=== PATIENT | male | born 1940 | race Caucasian/White ===

== ENCOUNTER 2025-10-10 13:17 | Inpatient (IN) | payer MEDICARE, OTHER, SELFPAY ==
[2025-10-10] VITALS (15 sets, daily range): BP systolic 71–150; BP diastolic 38–122; BMI 24.2
--- NOTE | 2025-10-10 10:41 | EDRN ---
Dr. Menard at bedside.
--- NOTE | 2025-10-10 11:00 | ED.GENMED ---
History of Present Illness
General
Chief Complaint: Chest Pain
Source: patient and ambulance crew
Exam Limitations: none
Time Seen by Provider: 10/10/25 10:46
History of Present Illness
History of Present Illness:
See MDM
Past History
Past History
ED Past Medical History: Arrthythmia, HTN and Hypercholesterolemia
ED Past Surgical History: None
Social History
Tobacco: Non-smoker
Alcohol: None
Phy Exam
Physical Exam
Physical Exam:
See MDM
Scores
Heart Score for Chest Pain Patients
STEMI patient?: Yes
Course
Orders/Labs/Results
Orders:
Orders
10/10/25 10:42
EKG [Electrocardiogram (*1)] Urgent
Reason for Study: Chest Pain
EKG- Treatment ONCE
10/10/25 10:43
BMP [Basic Metabolic Panel] Urgent
Complete Blood Count/No Diff Urgent
Comprehensive Metabolic Panel Urgent
Prothrombin Time Urgent
Troponin I Urgent
Vital Signs
Initial and Last Documented VS:
Initial Vital Signs
Pulse
55
10/10/25 10:48
Last Documented Vital Signs
Temp Pulse Resp BP Pulse Ox
97.5 F 55 29 149/114 97
10/10/25 10:53 10/10/25 10:51 10/10/25 10:51 10/10/25 10:51 10/10/25 10:51
MDM/Problems Addressed
Differential Diagnosis Includes:
Note:
CHIEF COMPLAINT(S)
Fall with subsequent shortness of breath.
HISTORY OF PRESENT ILLNESS
The patient is an 85-year-old male with a history of atrial fibrillation, currently on warfarin, presenting after a fall at 6 a.m. today. He reports experiencing shortness of breath since the fall. Patient is currently denying any chest pain.
Patient was found to be bradycardic by the medics. Medics indicated that they gave 1 dose of atropine. The patient was initially supposed to go to [facility] but their Hair Sample Matcher is down and they are on STEMI divert. [facility] did call
prior to arrival indicating the likelihood of the patient arriving. However, the medics never called to alert us about the patient. Regardless, patient was met by myself and nursing staff immediately on arrival. EKG done immediately and STEMI
alert called. Patient given heparin bolus, aspirin and Brilinta and cardiology called immediately
PHYSICAL EXAM
General: Alert, no acute distress.
Skin: Warm, dry.
Head: Normocephalic, atraumatic
Neck: Appears supple, trachea midline.
Eyes, Ears, Nose, Mouth, and Throat: Moist mucous membranes
Cardiovascular: No signs of cyanosis. Bradycardic
Respiratory: Respirations are non-labored. Lungs clear
Abdomen: Non-distended
Musculoskeletal: No deformities
Neurological: No focal neurological deficit observed.
Psychiatric: Cooperative, appropriate mood and affect.
ELECTROCARDIOGRAM (EKG)
My independent EKG interpretation is:
- Bradycardia with a heart rate of 42 beats per minute.
- ST elevation noted, concerning for myocardial infarction.
EMERGENCY TREATMENTS ADMINISTERED
- Aspirin, heparin, and ticagrelor (Brilinta) were administered.
MANAGEMENT OF THE PATIENTS CARE WAS DISCUSSED WITH
Consultation initiated with the university librarian to discuss the concerning EKG findings and management plan.
MEDICAL DECISION MAKING
-Complexity of Data Reviewed: Chronic conditions affecting care [History of atrial fibrillation, on warfarin].
-Data:
Category 1
- EKG independently interpreted: Bradycardia, ST elevation.
Category 3
- Discussion of management with university librarian about concerning EKG findings.
DIFFERENTIAL DIAGNOSIS
The Differential Diagnosis includes, in no particular order and is not limited to:
- Myocardial infarction
- Atrial fibrillation with slow ventricular response
- Heart block
- Electrolyte imbalance
- Syncope from orthostatic hypotension
- Pulmonary embolism
- Pericarditis
- Cardiac tamponade
- Congestive heart failure exacerbation
- Fatigue or deconditioning post-fall
MEDICATION RECONCILIATION
Prescription medication was administered: Aspirin, heparin, and ticagrelor (Brilinta).
SUMMARY OF ENCOUNTER
The patient presented to the emergency department following a fall at home, accompanied by shortness of breath and subsequently reported chest pain. Initial pre-hospital findings included bradycardia and EKG changes suggestive of a myocardial
infarction, prompting immediate intervention and further diagnostic evaluation in collaboration with cardiology.
DISPOSITION
Admit for further cardiac evaluation and management.
ASSESSMENT
The patient likely suffered a myocardial infarction, suggested by EKG changes and bradycardia, necessitating advanced cardiac care.
DIAGNOSIS
- Myocardial infarction suspected (ICD-10: I21.9)
- Bradycardia (ICD-10: R00.1)
- Atrial fibrillation (ICD-10: I48.91)
EKG
My independent EKG interpretation is:
- Rhythm: Bradycardia
- Heart Rate: 45 beats per minute
- ST Segment Changes: ST elevations noted inferiorly
- Additional Observations: Lateral ST depressions
- Conclusion: Findings consistent with an acute myocardial infarction (GA)
CARE-UPDATE
10/10/25 - 10:53
EKG indicates inferior GA. Cardiology notified; patient received aspirin, Brilinta, and Heparin. Treating as full STEMI alert.
SUMMARY OF ENCOUNTER
The patient presented with shortness of breath since the morning and EKG changes concerning for an inferior ST-Elevation Myocardial Infarction (STEMI). A STEMI alert was initiated and cardiology was notified. The patient received aspirin, ticagrelor
(Brilinta), and a loading dose of heparin. The patient denied chest pain but reported mild shortness of breath. Due to the concern for inferior myocardial infarction, nitroglycerin was avoided. The patient was started on IV fluids.
DISPOSITION
Admit for further cardiac evaluation and management in the cardiac catheterization lab.
ASSESSMENT
The patient is suspected to have experienced an inferior myocardial infarction, evidenced by EKG changes and subsequent management steps taken to address the STEMI alert.
EMERGENCY TREATMENTS ADMINISTERED
Aspirin, ticagrelor (Brilinta), and a loading dose of heparin were administered.
MANAGEMENT OF THE PATIENTS CARE WAS DISCUSSED WITH
Management and disposition were discussed with cardiology, who will oversee the transfer to the cardiac catheterization lab.
MEDICATION RECONCILIATION
Aspirin, ticagrelor (Brilinta), and heparin were administered.
MEDICAL DECISION MAKING
-Complexity of Data Reviewed: Chronic conditions affecting care [atrial fibrillation on warfarin] Differential Diagnosis includes myocardial infarction, atrial fibrillation with slow ventricular response, heart block, electrolyte imbalance, syncope
from orthostatic hypotension, pulmonary embolism, pericarditis, cardiac tamponade, congestive heart failure exacerbation, fatigue or deconditioning post-fall.
-Data:
Category 1 My independent EKG interpretation is: Bradycardia with a heart rate of 42 beats per minute and ST elevation noted, concerning for myocardial infarction.
Category 3 Discussion of management with cardiology regarding the concerning EKG findings and subsequent care plan.
DIAGNOSIS
- Myocardial infarction suspected (ICD-10: I21.9)
- Bradycardia (ICD-10: R00.1)
- Atrial fibrillation (ICD-10: I48.91)
*Pulse Oximetry
SaO2: 97
Nasal Cannula flow liters per minute: 2
Patient hypoxic: no
*Critical Care Note
Total Time (30-74mins, 75-104mins- exclusive of procedures): 33 min
comment:
The high probability of a clinically significant, sudden or life threatening deterioration of the cardiovascular system(s) required my full and direct attention, intervention and personal management. The aggregate critical care time was 33 minutes.
This time is in addition to time spent performing reported procedures but includes the following:
[x] Data Review and interpretation
[x] Patient assessment and monitoring of vital signs
[x] Documentation
[x] Medication orders and management
ED Attending Note
-
Portions of this chart may have been created with voice recognition software.� Occasional wrong word or��sound alike� substitutions may have occurred due to the inherent limitations of voice recognition software.
Discharge Plan
Departure
Patient Disposition: Admit
Date of Disposition: 10/10/25
Time of Disposition: 11:00
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
Presentation/result/management discussed w/ accepting MD/DO: interventional cardiology
Discharge Problem:
ST elevation (STEMI) myocardial infarction
Prescriptions:
No Action
latanoprost 0.005 % Drops
1 drp BOTH EYES HS
atorvastatin 20 mg Tablet
20 mg PO QPM
lisinopril 20 mg Tablet
20 mg PO DAILY
amlodipine 5 mg Tablet
5 mg PO HS
alprazolam 0.5 mg Tablet
0.5 mg PO TID PRN (Reason: anxiety)
warfarin 5 mg Tablet
5 mg PO DAILY
dorzolamide-timolol 22.3-6.8 mg/mL Drops
1 drp RIGHT EYE BID
cholecalciferol (vitamin D3) 125 mcg (5,000 unit) Capsule
125 mcg PO DAILY
lamotrigine 100 mg Tablet
100 mg PO BID
aspirin 81 mg Tablet,Chewable
81 mg PO DAILY Qty: 30 0RF
pantoprazole [Protonix] 40 mg tablet,delayed release (DR/EC)
40 mg PO BID Qty: 60 0RF
Referrals:
UNKNOWN - PT NOT,INTERVIEWE [Family Provider]
Discharge Date and Time
Print Language: LIBERIAN
[2025-10-10 11:15] LABS: Hematocrit 35.5 % (39.0-52.0); Hemoglobin 11.6 g/dL (13.0-18.0); Mean Corp Hgb Conc. 32.7 g/dL (33.0-37.0); Mean Corpuscular Volume 89.9 fL (80.0-94.0); Platelet Count 248 10^3/uL (130-400); Red Cell Dist. Width 15.9 % (11.5-14.5)
[2025-10-10 11:26] LABS: INR 3.72; PT 37.1 Sec (11.4-14.6)
[2025-10-10 11:37] LABS: Carbon Dioxide 17 mmol/L (22-30)
[2025-10-10 11:50] LABS: AST (SGOT) 83 U/L (17-59); Albumin 4.0 g/dl (3.5-5.0); Alkaline Phosphatase 92 U/L (38-126); Blood Urea Nitrogen 27 mg/dl (9-20); Calcium 8.6 mg/dl (8.4-10.2); Chloride 103 mmol/L (98-107); Estimated Creatinine Clearance 38 ml/min; Glucose 193 mg/dl (70-99); Potassium 4.1 mmol/L (3.5-5.1); Sodium 134 mmol/L (135-145); Total Protein 6.7 g/dl (6.3-8.2); eGFR 53.50
[2025-10-10 11:53] LABS: Troponin I 17.000 ng/ml
[2025-10-10 11:57] LABS: ALT (SGPT) 29 U/L (0-50)
[2025-10-10 12:09] LABS: ACT-LR - POC 397 Seconds (116-155)
--- NOTE | 2025-10-10 13:12 | ITS.CL.PN ---
Addendum entered and electronically signed by Ryan Almanzar MD 10/12/25 11:50:
Correction, RCA was the stented artery:
CONCLUSIONS
1. Cardiogenic shock with severe systemic hypotension in setting of inferior STEMI.
2. Mild aortic stenosis on hemodynamic pullback.
2. Coronary artery disease as described with culprit 99% ostial RCA stenosis with TIMI2 flow and non-culprit mid-LAD ARCH SUPPORT TECHNICIAN.
3. Successful IVUS-optimized PCI with DESx2 to RCA (overlapping 3.5x26 and 3.5x26 mm [place] MARIAH post-dilated to 16 alejandra just inside distal edge, 18 alejandra throughout, and 20 alejandra at the ostium)
Original Note:
Intelligence Chief - Procedure Note
Procedure
Procedure Note:
CARDIAC CATHETERIZATION REPORT
Date of Procedure: 10/10/2025
Referring: Dr. Rush Menard MD
Indication: inferior STEMI, cardiogenic shock
PROCEDURE(S)
1. left heart catheterization
2. coronary angiography
3. IVUS RCA
4. PCI with MARIAH to RCA for acute NE
ACCESS: 6F right radial artery (closure: radial band)
CATHETERS
1. 6F JR4
2. 6F JL4
3. 6F JR4 guide catheter
MODERATE SEDATION: 60 minutes of moderate sedation was utilized. An independent special forces medical sergeant was present to assist with and help manage the patient's level of consciousness and physiologic status.
HEMODYNAMIC DATA
LV 86/12 (EDP 22) mmHg
AO 77/51 (mean 59) mmHg
CORONARY ANGIOGRAPHY
Dominance: right
LM: large with 30% mid stenosis.
LAD: large vessel giving rise to two small diagonal branches before being totally occluded in the mid section with L-L collaterals supplied from LAD septals and likely faint epicardial collaterals as well. The LAD is heavily calcified with severe
diffuse disease leading up to the ARCH SUPPORT TECHNICIAN.
LCx: large vessel giving rise to a small OM1, moderate caliber OM2, small OM3, and small OM4. There is a 40% stenosis in the proximal OM2 and diffuse moderate disease in OM3/4.
RCA: gives rise to a moderate caliber RPDA, small RPL1, moderate caliber RPL2, small RPL3. There is a 99% ostial RCA stenosis with TIMI2 flow distally. There is mild diffuse disease in the prox-mid RCA and a focal 70% stenosis in the proximal RPDA.
PCI with MARIAH to RCA
The RCA was engaged with a 6 [place] JR4 guide catheter. Additional heparin was given to achieve ACT greater than 300. Norepinephrine was started to support a MAP greater than 65. I was able to airmail a Runthrough wire through the ostial stenosis
but it would not navigate beyond the mid vessel. The wire was left in place for support and cutting effect, and a Whisper wire easily advanced to the distal RCA. Due to inadequate guide support and severe ostial stenosis, 2.0 mm semicompliant
balloon could not be advanced into the lesion. A 1.25 x 12 mm Sprinter balloon was advanced into the ostial stenosis successfully but burst on inflation. A new 1.25 x 15 mm Sprinter balloon was then successfully advanced and inflated at 12 alejandra,
followed by serial angioplasty with a 2.0 mm semicompliant balloon, 2.5 mm noncompliant balloon, and 3.5 mm noncompliant balloon all with full expansion at 12 alejandra. The Runthrough wire was pulled back to serve as an ostial marker, after which a
3.5x26 mm [place] MARIAH was deployed at the ostium. The distal edge was noted to land in an area of mild-moderate plaque, and thus the decision was made to stent distally with a second overlapping 3.5x26 mm [place] MARIAH to cover the entire
diseased section and land in an area of normal vessel. IVUS was performed demonstrate appropriate stent sizing, no distal edge dissection, and perfect osital placement. There was mild underexpansion in portions of the stented segment. The
overlapping stents were then post-dilated to high pressure (16 alejandra just inside distal edge, 18 alejandra throughout, 20 alejandra at ostium) with the 3.5 mm NC balloon. Final angiographic result was outstanding. The wire and guide were removed and a TR band
placed. The patient was easily weaned from norepi. Family was updated.
RADIATION: dose 1219 mGy; DAP 55.8 Gy*cm2; fluoroscopy time 25.5 min
CONCLUSIONS
1. Cardiogenic shock with severe systemic hypotension in setting of inferior STEMI.
2. Mild aortic stenosis on hemodynamic pullback.
2. Coronary artery disease as described with culprit 99% ostial RCA stenosis with TIMI2 flow and non-culprit mid-LAD ARCH SUPPORT TECHNICIAN.
3. Successful IVUS-optimized PCI with DESx2 to LAD (overlapping 3.5x26 and 3.5x26 mm [place] Sampson MARIAH post-dilated to 16 alejandra just inside distal edge, 18 alejandra throughout, and 20 alejandra at the ostium)
RECOMMENDATIONS
1. DAPT with ASA and Plavix given need for anticoagulation for Afib. Will transition from ticagrelor to clopidogrel by giving 600 mg loading dose of clopidogrel 10/11 at 8 AM (no further ticagrelor s/p loading dose today).
2. Resume anticoagulation tomorrow pending INR valve. Consider transition to NOAC for reduced bleeding risk if patient amenable.
3. Trend troponin to peak, check lipids, Lp(a), A1c.
4. No beta essence given bradycardia
5. TTE with additional GDMT as indicated
6. High intensity statin to achieve LDL at least less than 55. Addition of additional lipid lower agents to achieve goal.
7. Cardiac rehab.
Signed: Ryan Almanzar MD, PhD
--- NOTE | 2025-10-10 13:50 | CON.CAR ---
Consultation
Consultation Request
Date/Time Consultation Requested: 09/08/2025
Date/Time Consultation Performed: 11 AM
Requesting Provider: Dr. Rush Menard
Performing Provider: Dr. Agustin Almanzar
Reason for Consultation: inferior STEMI
Medical History
-
Chief Complaint: shortness of breath
History of Present Illness:
85 year old with past medical history significant for Afib on warfarin, prior NSTEMI and positive cardiac stress test with anterior ischemia managed conservatively, prior GI bleeding 2/2 gastric ulcer s/p clipping of large GEJ ulcer 08/2023 without
further bleeding, L subclavian stenosis, SSS with bradycardia, HTN, HLD, and mild , presenting in setting of a dizziness and a fall this morning after which he was found by EMS to have an inferior STEMI. He reported persistent shortness of breath
but no chest pain after the fall. Had one episode of emesis. No palpitations. Patient was initially take to [facility] but they were on STEMI divert so re-routed to . Received atropine for bradycardia en route. On arrival, VS notable for hypotension,
bradycardia. Fluids started and given ASA, ticag, heparin bolus. Cardiology consulted for STEMI.
The patient denies any further bleeding after his clipping in 2022. Continues warfarin, last dose this AM. No shortness of breath or chest pain preceeding today.
Prior studies reviewed:
EKG today - Afib with bradycardic response, inferior JASON with anterolateral reciprocal STD (new from 2022 EKG)
08/19/23 Nuclear Med myocardial perfusion study - EF 60%, small to mod apical anterior defect, intermediate to high risk study
03/13/23 - ECHO - EF 60-65%, mod basal septal LVH, mild-mod MAC, mild MR, mild-mod TR, mild /AI p/m 25.8/14.6mmHg
Past Medical History
Past Medical History: Arrhythmias, CAD (presumed due to NM, pos stress), HTN, Hypercholesterolemia, Renal Failure and Valvular Disease
Social History
Tobacco: Former Smoker
Personal:
Living: With Family
Employment: Retired
Family History
Family History: Reviewed & Not Pertinent
Allergies / Home Medications
Allergy/AdvReac Type Severity Reaction Status Date / Time
No Known Allergies Allergy Verified 08/20/23 12:50
�Medication �Instructions �Recorded �Confirmed �Type
alprazolam 0.5 mg tablet 0.5 mg PO TID PRN anxiety 08/20/23 08/20/23 History
amlodipine 5 mg tablet 5 mg PO HS Blood Pressure 08/20/23 08/20/23 History
atorvastatin 20 mg tablet 20 mg PO QPM High Cholesterol 08/20/23 08/20/23 History
cholecalciferol (vitamin D3) 125 125 mcg PO DAILY Supplement 08/20/23 08/20/23 History
mcg (5,000 unit) capsule
dorzolamide 22.3 mg-timolol 6.8 1 drp RIGHT EYE BID Eye Condition 08/20/23 08/20/23 History
mg/mL eye drops
lamotrigine 100 mg tablet 100 mg PO BID Neurological 08/20/23 08/20/23 History
Condition
latanoprost 0.005 % eye drops 1 drp BOTH EYES HS Eye Condition 08/20/23 08/20/23 History
lisinopril 20 mg tablet 20 mg PO DAILY Blood Pressure 08/20/23 08/20/23 History
warfarin 5 mg tablet 5 mg PO DAILY Blood Clot 08/20/23 08/20/23 History
Prevention/Tx
aspirin 81 mg chewable tablet 81 mg PO DAILY #30 tabs 08/25/23 Rx
pantoprazole 40 mg tablet,delayed 40 mg PO BID #60 tabs 08/25/23 Rx
release (Protonix)
Review of Systems
-
History Source: Patient
All other systems: Negative unless noted
Respiratory: Other (shortness of breath)
Physical Exam
Vital Signs
Temp Pulse Resp BP Pulse Ox
36.4 C 45 25 135/97 97
10/10/25 10:53 10/10/25 11:11 10/10/25 11:11 10/10/25 11:11 10/10/25 11:13
Lab Results
10/10/25 11:06
10/10/25 11:06
Troponin I 17.000 ng/ml H* 10/10/25 11:06
Physical Exam
General: Respiratory Distress
Respiratory: Clear
Cardiac: Other (bradycardic, irregular; weak R radial pulse)
Musculoskeletal: No Edema
Skin: Warm
Neuro: AO x 3
Psych: Calm
Impression / Plan
-
85M with prior NM and positive stress test managed conservatively, prior GIB, Afib on Warfarin, presenting with dizziness and a fall, emesis, and found to have inferior JASON. Hypotensive on arrival. Presentation is concerning for inferior STEMI with
cardiogenic shock. Will take to emergent coronary angiography and possible intervention. Risks/benefits discussed with patient and family. Loaded with ASA/ticag and heparin bolus. Further recommendations to follow pending cath results.
Data Reviewed
-
EKG: Tracing Personally Visualized and interpreted, Report Reviewed by me, Discussed with Physician, Discussed with Nurse, Discussed with Patient and Discussed with Family
Labs: Labs Reviewed by me and Discussed with Physician
Critical Care Time (in minutes): 40
--- NOTE | 2025-10-10 13:51 | HPS.HSE ---
Addendum entered and electronically signed by Elizabet Mejia MD 10/10/25 18:02:
This is an addendum to H&P written by Allison Mascorro on 10/10/2025. �Patient seen and examined independently with SALES AND MARKETING ASSISTANT.
85-year-old male past medical history of esophageal ulcer status post clipping, chronic anemia, CAD/prior NSTEMI, paroxysmal atrial fibrillation on Coumadin, sick sinus syndrome, left subclavian stenosis, hypertension, chronic hyponatremia,
anxiety/bipolar, hyperlipidemia presenting with fall today followed by dizziness, shortness of breath. �No chest pain. �Found to have STEMI by EMS and be bradycardic by medics and given 1 dose of atropine.
On arrival patient was hypotensive and bradycardic. �IV fluids given given. �Patient was given aspirin, ticagrelor, heparin bolus.
Labs show leukocytosis of 29. �Stable anemia of 11.6. �Troponin 17. �INR of 3.72.
Patient was taken to Care Coordinator for inferior STEMI/cardiogenic shock. �Patient was found to have 99% ostial RCA stenosis, nonculprit mid LAD DERMATOLOGY NURSE PRACTITIONER. �Patient underwent with PCI x 2 of LAD.
Patient already given ticagrelor with plan to transition to Plavix. �Continue aspirin and Plavix. �Check INR daily. �Plan to resume Coumadin tomorrow. �Trend troponin to peak. �Check A1c and lipid panel. �High intensity statin.
Check CT head given fall prior to admission.
Original Note:
Family Physician
-
Family Physician: Justin Pollock
Chief Complaint
-
shortness of breath and diaphoresis
History of Present Illness
Patient is a 85-year-old male with past medical history significant for paroxysmal atrial fibrillation, essential hypertension, hyperlipidemia, anxiety/bipolar disorder, GERD and anemia who presented to [facility] ED for evaluation of shortness of breath
and diaphoresis. Patient along side of spouse and daughter assisted with HPI. Patient reports walking this morning with walker when he fell. He does not recall becoming dizzy, short of breath or having palpitations prior to fall. He also notes he
does not feel like he tripped when he fell. Family assisted him up and patient was able to eat his breakfast without incident. A few hours later patient had an episode of emesis associated with shortness of breath, dry cough and diaphoresis.
Patients daughter also noted that patient appeared very pale compared to his baseline. He stated he did not notice chest pain until he was in ambulance on his way to hospital. Denies any fever, chills, constipation, diarrhea or urinary symptoms.
Medical History
Past Medical History
Past Medical History: Reports Other
Additional Past Medical History:
paroxysmal atrial fibrillation
essential hypertension
hyperlipidemia
anxiety/bipolar disorder
GERD
anemia
glaucoma
Past Surgical History: Reports Other
Additional Past Surgical History:
Cataract Removal
Right Knee Replacement
Social History
Tobacco: Former Smoker (Quit about 20 years ago)
Alcohol: Occasional
Drug: None
Personal:
Living: With Family
Employment: Retired
Family History
Family History: Other (Father: Passed from [place] in his 60s)
Allergies / Home Medications
Allergies reflects when Allergies were last updated in [facility].
Home Medications with original date entered in [facility]
Allergy/Medication List:
Allergies
Allergy/AdvReac Type Severity Reaction Status Date / Time
No Known Allergies Allergy Verified 08/20/23 12:50
Home Medications
atorvastatin 20 mg tablet 20 mg PO QPM High Cholesterol 08/20/23
cholecalciferol (vitamin D3) 125 mcg (5,000 unit) capsule 125 mcg PO DAILY Supplement 08/20/23
dorzolamide 22.3 mg-timolol 6.8 mg/mL eye drops 1 drp RIGHT EYE HS Eye Condition 08/20/23
lamotrigine 100 mg tablet 10 mg PO BID Neurological Condition 08/20/23
latanoprost 0.005 % eye drops 1 drp BOTH EYES HS Eye Condition 08/20/23
warfarin 5 mg tablet 5 mg PO DAILY Blood Clot Prevention/Tx 08/20/23
alfuzosin 10 mg tablet,extended release 24 hr 10 mg PO HS 10/10/25
clonazepam 0.5 mg tablet 0.5 mg PO BID 10/10/25
pantoprazole 40 mg tablet,delayed release (Protonix) 40 mg PO DAILY 10/10/25
sodium chloride 1 gram tablet 2,000 mg PO BID 10/10/25
Review of Systems
-
History Source: Patient
Constitutional: Denies Fever or Chills
EENT: Denies Sore Throat
Respiratory: Reports Cough and Trouble Breathing; Denies Hemoptysis
Cardiac: Reports Chest Pain and Diaphoresis; Denies Palpitations or Syncope
Abdomen/GI: Reports Nausea and Vomiting; Denies Abdominal Pain or Diarrhea
: Denies Dysuria, Frequency or Urgency
Musculoskeletal: Denies Joint Pain
Skin: Denies Rash
Neurological: Denies Dizzy, Headache, Weakness or Numbness
Physical Exam
Vital Signs
Vital Signs
Temp Pulse Resp BP Pulse Ox
97.5 F 45 25 135/97 97
10/10/25 10:53 10/10/25 11:11 10/10/25 11:11 10/10/25 11:11 10/10/25 11:13
Physical Exam
General: Well Developed, Well Nourished, No Apparent Distress, Comfortable and Conversant
HEENT: NormoCephalic, PERRLA, Nose Appears Normal and Ears Appear Normal
Respiratory: Clear; No Wheezes, Rales, Rhonchi or Non Labored Respirations
Cardiac: Regular Rhythm; No Murmur, Rub, Gallop or Peripheral Edema
GI: Soft, Non Tender, Non Distended and Normal Bowel Sounds
Musculoskeletal: No Clubbing, No Cyanosis and No Edema
Skin: Warm and IV/Catheter Site
Neuro: Awake and AO x 3
Psych: Calm
Laboratory Results
-
10/10/25 11:06
10/10/25 11:06
Laboratory Results
PT 37.1 Sec (11.4-14.6) H 10/10/25 11:06
INR 3.72 10/10/25 11:06
Total Bilirubin 1.4 mg/dl (0.2-1.3) H 10/10/25 11:06
AST 83 U/L (17-59) H 10/10/25 11:06
ALT 29 U/L (0-50) 10/10/25 11:06
Alkaline Phosphatase 92 U/L (38-126) 10/10/25 11:06
Troponin I 17.000 ng/ml H* 10/10/25 11:06
Data Reviewed
-
Medical Tests (Nuc Med, Echo, EKG etc): Report Reviewed by me (EKG: SINUS RHYTHM WITH OCCASIONAL PREMATURE VENTRICULAR COMPLEXES ANTERIOR INFARCT (CITED ON OR BEFORE 10-Oct-2025))
Lab Data: Labs Reviewed by me (WBC 29.3, hgb 11.6, hct 35.5, Na 134, CO2 17, BUN 27, eGFR 53.50, trop 17.000)
Impression/Plan
-
IMPRESSION/PLAN:
#shortness of breath, diaphoresis and chest pain 2/2 STEMI
patient with fall this morning with no known head strike, emesis x1, diaphoresis, shortness of breath and chest pain
patient taken emergently to laboratory animal caretaker upon arrival
WBC 29.3, Na 134, CO2 17, BUN 27, eGFR 53.50, trop 17.000
EKG: SINUS RHYTHM WITH OCCASIONAL PREMATURE VENTRICULAR COMPLEXES
ANTERIOR INFARCT (CITED ON OR BEFORE 10-Oct-2025)
- Admit to IVU
- Consult Cardiology
- start on Plavix and ASA
- trend troponin to peak
- ECHO
- increase to high intensity statin
#fall
patient with fall this morning with no known head strike
walks with walker at home
- check Head CT
#paroxysmal atrial fibrillation
INR 3.72
- hold Warfarin
- check INR in morning
#essential hypertension
- continue alfuzosin
#hyperlipidemia
- increase atorvastatin to 40mg
#anxiety/bipolar disorder
- continue clonazepam and lamotrigine
#GERD
- continue pantoprazole
#anemia
hgb 11.6, hct 35.5
appears stable
Code status: full code
DVT Prophylaxis: Warfarin
[2025-10-10 14:09] LABS: Glycohemoglobin (HgbA1c) 5.9 % (4.0-5.9)
[2025-10-10 15:16] LABS: Troponin I 26.900 ng/ml
[2025-10-10] MEDS: LIPITOR 40 MG PO (17:54)
--- NOTE | 2025-10-10 18:58 | PTCARENOTE ---
~1330: Handoff report received from nightshift RN. Pt AOx4, forgetful at times, bed alarm in place for safety, NSR/ST 90s-100s, SBP 110s-130s, RA satting 93%. TR band in place on R radial site which is CDI with no oozing or hematoma noted at this
time. EKG completed. Family at bedside. Dr. Almanzar in to speak with patient and family. Admission charting completed and patient oriented to room and callbell system, Bloodwork obtained and sent to lab. All needs met at this time, call rudd within
reach.
~7462-1307: Air removed out of TR band, no oozing at this time. Pt OOB with Ax1 and walker. Repeated direction required on proper posture with using a walker and how to sit in the wheelchair to go to ED CT scan for his CT Head. Patient also reuires
repeated education on R wrist precautions s/p CCL. Pt taken to CT in stable condition via wheelchair by PCT.
~6380-4605: Patient back from CT head. OOB in chair at this time to eat dinner. Air removed from TR band.
~5766-1750: Radial site oozing, +2cc air returned to band.
~1592-6595: Air removed from TR band, no more oozing at this time.
~3310-8610: TR band removed. Site CDI. VSS. Handoff report given to nightshift RN.
[2025-10-10] MEDS: SODIUM CHLORIDE 2 GRAM PO (19:50)
[2025-10-10] MEDS: LAMICTAL 100 MG PO (19:50)
[2025-10-10 20:28] LABS: Troponin I 62.400 ng/ml
[2025-10-10] MEDS: TIMOPTIC 0.5% OPHTHALMIC SOLUTION 1 DROP RIGHT EYE (22:39)
[2025-10-10] MEDS: FLOMAX 0.4 MG PO (22:39)
[2025-10-10] MEDS: TRUSOPT 2% OPHTHALMIC SOLUTION 1 DROP RIGHT EYE (22:39)
[2025-10-10] MEDS: XALATAN OPHTHALMIC SOLUTION 1 DROP BOTH EYES (22:40)
[2025-10-10 23:43] LABS: Troponin I 66.700 ng/ml
[2025-10-11] VITALS (7 sets, daily range): BP systolic 76–149; BP diastolic 64–103
--- NOTE | 2025-10-11 00:52 | PTCARENOTE ---
Assumed care on pt at change of shift, aaox3, anxious and forgetful, bed alarm in place. R radial site with CDI dressing. denies cp or SOB. Pox 98% RA. Bladder scan at start of shift for c/o difficulty with urination, 151cc, encouraged voiding, will
monitor and bladder scan per protocol. Sacral foam applied to sacrum for protection. SR/Afib/SB on tele, HR 50-60's. Call rudd within reach, POC ongoing.
[2025-10-11 05:02] LABS: Hematocrit 29.2 % (39.0-52.0); Hemoglobin 10.0 g/dL (13.0-18.0); Mean Corp Hgb Conc. 34.2 g/dL (33.0-37.0); Mean Corpuscular Volume 83.7 fL (80.0-94.0); Nucleated Red Blood Cells % 0 % (-); Platelet Count 227 10^3/uL (130-400); Red Cell Dist. Width 15.7 % (11.5-14.5)
[2025-10-11 05:16] LABS: INR 2.82; PT 29.9 Sec (11.4-14.6)
[2025-10-11 05:24] LABS: Blood Urea Nitrogen 46 mg/dl (9-20); Calcium 8.7 mg/dl (8.4-10.2); Carbon Dioxide 22 mmol/L (22-30); Chloride 106 mmol/L (98-107); Estimated Creatinine Clearance 26 ml/min; Glucose 106 mg/dl (70-99); HDL Cholesterol 53 mg/dl; LDL Cholesterol, Calculated 46 mg/dl; Potassium 5.1 mmol/L (3.5-5.1); Sodium 134 mmol/L (135-145); Very Low Density Lipoprotein 12 mg/dl (0-30); eGFR 33.93
[2025-10-11 05:39] LABS: Troponin I 73.900 ng/ml
[2025-10-11] MEDS: NSS 250 IV (06:22)
--- NOTE | 2025-10-11 06:39 | PTCARENOTE ---
Pt had no urine output this shift, bladder scan q6hr per protocol,bladder scan 305 cc this morning. prison officer BUILDING REPAIR MAINTENANCE SUPERVISOR made aware on pt not voiding and BUN/Cr results from morning labs, new order for 250cc IVF's administering.
[2025-10-11] MEDS: PLAVIX 600 MG PO (07:36)
[2025-10-11] MEDS: SODIUM CHLORIDE 2 GRAM PO ×2 (07:37→20:25)
[2025-10-11] MEDS: LOW STRENGTH ASPIRIN 81 MG PO (07:37)
[2025-10-11] MEDS: PROTONIX 40 MG PO (07:37)
[2025-10-11] MEDS: VITAMIN D3 (cholecalciferol) 125 MCG PO (07:37)
[2025-10-11] MEDS: LAMICTAL 100 MG PO ×2 (07:37→20:25)
[2025-10-11 08:14] LABS: ACT-LR - POC > 397 Seconds (116-155)
--- NOTE | 2025-10-11 08:45 | W.PN.HOSP.TC ---
Today's Communication/Plan
-
Continue ACS protocol. Monitor renal function and nephrology eval
Assessment / Plan
Assessment / Plan
Physical exam:
General: Acutely ill
HEENT: Normocephalic, Atraumatic and Moist Mucous Membranes
Respiratory: Clear to Auscultation; Negative Wheezes, Rales or Rhonchi
Cardiac: Regular Rhythm and S1/S2
GI: Soft, Nontender and Nondistended
Musculoskeletal: No Clubbing, No Cyanosis and No Edema
Neuro: Awake, Alert and Oriented, no neurological deficits
Psych: Calm
A/P:
STEMI:
Status post emergent cardiac cath on 10/10 (transfer from [facility] due to being on divert)
Cardiology following
On triple therapy and statin
Not on beta-essence due to bradycardia
Troponin peaked to 73.9 now down to 51
Echocardiogram
PT OT eval okay by cardio
Sinus bradycardia:
Given atropine by EMS
JAMES:
Creatinine 1.9 today
Multiple factors could have contributed such as hemodynamic, A-fib/bradycardia, contrast, urinary retention/postobstructive, ATN, other.
Will request nephrology consult in light of above
Avoid nephrotoxic
Monitor renal function in a.m.
Urinary retention:
Continue Flomax
Straight cath as needed but if continues to retain we will place a Dutta cath so continue to monitor
Anemia:
Monitor hemoglobin closely
Hyponatremia:
Monitor trend in a.m.
Leukocytosis:
Likely reactive and trending down
Monitor trend
Paroxysmal atrial fibrillation:
On anticoagulation with warfarin, INR 2.82 today
Hypertension:
Continue with hypertensive
Hyperlipidemia:
Continue statin
Bipolar with anxiety:
Continue Lamictal
Continue benzodiazepine
History of GI bleed in the past:
No signs of GI bleeding at the moment
DVT prophylaxis:
Warfarin
CODE STATUS:
Full code
Total time spent on today's encounter was 52 minutes which included time spent in counseling the patient/family regarding diagnosis and treatment plan as listed above, goals of care, and symptom management. Case was discussed with nursing staff,
specialists, and care coordinators/case management. All labs and imaging personally reviewed by me. Remainder the time spent in detailed review of previous records, lab data, imaging, and other medical provider documentation.
Anticipated Discharge: 24 - 48 hours
Subjective/Interval History
-
Date of Service: October 11, 2025
Patient denies any chest pain or shortness of breath today. He is having a hard time urinating.
Objective Data
-
Labs:
Laboratory Results
10/11/25
04:53
WBC 19.4 H
Hgb 10.0 L
Hct 29.2 L
Plt Count 227
PT 29.9 H
INR 2.82
Sodium 134 L
Potassium 5.1
Chloride 106
Carbon Dioxide 22
BUN 46 H
Creatinine 1.9 H
Glucose 106 H
Calcium 8.7
Vital Signs:
Vital Signs
Temp Pulse Resp BP Pulse Ox
98.7 F 60 20 99/64 96
10/11/25 07:18 10/11/25 07:45 10/11/25 07:18 10/11/25 07:25 10/11/25 07:18
I&O
10/10/25 10/11/25 10/12/25
06:59 06:59 06:59
Intake Total 240 / 240
Balance 240 / 240
--- NOTE | 2025-10-11 08:54 | W.PN.CARDCBS ---
Addendum entered and electronically signed by Sherri Kelley, DO 10/12/25 18:40:
Correction:
-Emergent [facility] 10/10/25: Right dominant system with a large left main that had a mid 30% stenosis. His LAD has a MANAGER ADOBE with left to left collaterals supplied from the LAD septals and likely faint epicardial collaterals. Circumflex has a 40% stenosis
of proximal OM 2 and diffuse moderate disease of OM 3/4. There was a 99% ostial RCA stenosis with focal 70% stenosis in the proximal RPDA. He had successful IVUS-optimized PCI with DESx2 to RCA (overlapping 3.5x26 and 3.5x26 mm [place] Wirt MARIAH
post-dilated to 16 alejandra just inside distal edge, 18 alejandra throughout, and 20 alejandra at the ostium)
Addendum entered and electronically signed by Sherri Kelley, DO 10/11/25 15:08:
I saw and examined the patient.
The Horticulture Instructor's note was reviewed and I agree with the note.
Comment: Patient was seen and examined sitting out of bed to chair. Overall anxious to go home and denies chest pain or pressure. Denies shortness of breath or dizziness.
GEN: No acute distress sitting out of bed to chair on room air
HEENT: mmm
LUNGS: Bronchovesicular breath sounds, clear
CV: SR on telemetry. Reg, S1/S2, 2/6 syst LSB
ABD: ND soft, nontender. Positive bowel sounds.
EXT:No edema B/L LE. Right radial site intact
NEURO: Gross non-focal
Plan:
Presented with acute inferior STEMI
-Emergent [facility] 10/10/25: Right dominant system with a large left main that had a mid 30% stenosis. His LAD has a MANAGER ADOBE with left to left collaterals supplied from the LAD septals and likely faint epicardial collaterals. Circumflex has a 40% stenosis
of proximal OM 2 and diffuse moderate disease of OM 3/4. There was a 99% ostial RCA stenosis with focal 70% stenosis in the proximal RPDA. He had successful IVUS-optimized PCI with DESx2 to LAD (overlapping 3.5x26 and 3.5x26 mm [place] Wirt MARIAH
post-dilated to 16 alejandra just inside distal edge, 18 alejandra throughout, and 20 alejandra at the ostium)
- Peak [id number]
- 2D echocardiogram with mildly reduced LV systolic function, EF 46% with mid and apical anterior septum, apical anteroseptum and apex that are hypokinetic. The mid-apical inferior wall is hypokinetic
- LDL 46 and outpatient dose of atorvastatin increased to 40 mg daily in the setting of ACS
-Patient is chronically on warfarin, but was loaded with Brilinta prior to cardiac cath 10/10/2025. Following loading dose Brilinta the patient was switched to Plavix with a loading dose on the morning of 10/11/2025 and then daily dosing to start
thereafter on 10/12/2025.
-Telemetry: asymptomatic 3 beat run of NSVT weight on 10/10/2025.
-Patient was not started on beta-essence due to bradycardia requiring atropine during EMS transport 10/10/2025. Sinus bradycardia seen on telemetry during sleeping. Will continue to follow and add low-dose Toprol XL 10/12/25 if telemetry and VS are
stable.
-Cr increased to 1.9 on my review of labs 10/11/2025. Recheck BMP on 10/12/25. Avoid nephrotoxic agents
History of PAF on chronic warfarin anticoagulation
-Currently in sinus rhythm
- Goal INR 2�3. INR today 2.82.
- Monitor H&H closely while also on Plavix status post PCI
Mild aortic stenosis/mild aortic regurgitation on echocardiogram today with peak/mean transaortic gradients 18/12 mmHg. Mitral sclerosis without stenosis and mild MR.
-Outpatient periodic surveillance monitoring through his usual manager file.
Sinus bradycardia requiring atropine by EMS 10/10/2025 in the setting of inferior STEMI
-Monitor on telemetry
Prediabetes�management per primary
Gait dysfunction�PT evaluation pending. Cardiac rehab feels that he may benefit from PT prior to cardiac rehab.
Discharge planning underway
Original Note:
Today's Communication / Plan
-
Follow on telemetry and if HR and BP stable will attempt to add low-dose beta-essence tomorrow
Echo study pending
Recheck BMP in a.m., JAMES could be due to bradycardia requiring atropine prior to admission
Impression / Plan
-
PCP: Dr. Justin Pollock
Cardiology: Dr. Julius Robin
Impression:
Admitted with prehospital STEMI alert 10/10/2025
[facility] Broom Machine Operator on divert and so patient brought to [facility]
Acute inferior STEMI, troponin 73.9 and trending 10/11/2025
CAD
s/p overlapping 3.5 mm and 3.5 mm [place] MARIAH to the RCA 10/10/2025
MANAGER ADOBE of the mid LAD with left to left collaterals from LAD septals and likely faint epicardial collaterals as well 10/10/2025
Sinus bradycardia
given atropine by EMS 10/10/25
Hyperlipidemia
Paroxysmal atrial fibrillation
Chronic warfarin OAC managed by [facility] cardiology
HTN
Bipolar disorder
Anemia
JAMES
Hyperglycemia and prediabetes
Echo 03/13/23: EF 60-65%, mod basal septal LVH, mild-mod MAC, mild MR, mild-mod TR, mild /AI p/m 25.8/14.6mmHg
Echo 10/11/2025: Study pending
Plan:
-Patient came to [facility] ER as an acute inferior STEMI because [facility] Broom Machine Operator was on divert 10/10/2025. On cardiac cath patient found to have RCA lesion that was stented along with a MANAGER ADOBE of the LAD that did not receive intervention.
-Patient reports symptomatic improvement following RCA PCI 10/10/2025. No recurrence of chest pain or lightheadedness that he had on admission. Troponin has trended up to 73.9 as of 10/11/2025 and additional troponin pending.
-Echo ordered and study pending, echo order confirmed by me 10/11/2025
-Cardiac rehab as ordered
-LDL 46 and outpatient dose of atorvastatin increased to 40 mg daily in the setting of ACS
-Patient is chronically on warfarin, but was loaded with Brilinta prior to cardiac cath 10/10/2025. Following loading dose Brilinta the patient was switched to Plavix with a loading dose on the morning of 10/11/2025 and then daily dosing to start
thereafter on 10/12/2025.
-Telemetry reviewed by me and patient had an asymptomatic 3 beat run of NSVT weight on 10/10/2025. Patient was not started on beta-essence due to bradycardia requiring atropine during EMS transport 10/10/2025. Sinus bradycardia seen on telemetry
during sleeping. Will continue to follow and add low-dose Toprol XL 10/12/25 if telemetry and VS are stable.
-VS reviewed by me in detail 10/11/2025, BP as low as 99/64 and then as high as 150/122 since admission. No obvious symptoms with fluctuations in BP. Patient was not taking BP meds prior to admission
-Patient has known paroxysmal A-fib, but looks like he has been in SR since admission. Patient was not taking any AV kevyn blockers as an outpatient.
-Patient is on chronic warfarin therapy managed by [facility] cardiology, they perform fingersticks in their office every 4 weeks so long as patient is therapeutic, INR goal is 2-3. Patient recalls being on Eliquis at one point, but had to stop due
to cost.
-INR 2.82 on my review of labs from 10/11/2025. Outpatient dose of warfarin 2.5 mg daily will be given on 10/11/2025, orders placed by me
-Cre increased to 1.9 on my review of labs 10/11/2025. Recheck BMP on 10/12/25. JAMES seems premature for contrast-induced nephropathy, could be due to bradycardia prior to admission.
-Patient noted to have hyperglycemia and HgbA1c is 5.9% consistent with prediabetes.
HPI: 85M with prior VA and positive stress test managed conservatively, prior GIB, Afib on Warfarin, presenting with dizziness and a fall, emesis, and found to have inferior JASON. Hypotensive on arrival. Presentation is concerning for inferior STEMI
with cardiogenic shock. Will take to emergent coronary angiography and possible intervention. Risks/benefits discussed with patient and family. Loaded with ASA/ticag and heparin bolus. Further recommendations to follow pending cath results.
Progress Note - Wood Milling Machine Hand
Subjective
Date of Service: October 11, 2025
Patient reports he feels much better compared to yesterday
Objective
Labs:
10/11/25 04:53
10/11/25 04:53
Labs
Hgb 10.0 g/dL (13.0-18.0) L 10/11/25 04:53
Hct 29.2 % (39.0-52.0) L 10/11/25 04:53
Plt Count 227 10^3/uL (130-400) 10/11/25 04:53
PT 29.9 Sec (11.4-14.6) H 10/11/25 04:53
INR 2.82 10/11/25 04:53
Sodium 134 mmol/L (135-145) L 10/11/25 04:53
Potassium 5.1 mmol/L (3.5-5.1) 10/11/25 04:53
BUN 46 mg/dl (9-20) H 10/11/25 04:53
Creatinine 1.9 mg/dL (0.7-1.3) H 10/11/25 04:53
Glucose 106 mg/dl (70-99) H 10/11/25 04:53
Troponins
10/10/25 10/10/25 10/10/25
11:06 14:37 19:42
Troponin I 17.000 H* 26.900 H* D 62.400 H* D
10/10/25 10/11/25 10/11/25
22:37 01:15 04:53
Troponin I 66.700 H* Cancelled 73.900 H*
Vital Signs and I&O:
Vital Signs
Temp Pulse Resp BP Pulse Ox
98.7 F 60 20 99/64 96
10/11/25 07:18 10/11/25 07:45 10/11/25 07:18 10/11/25 07:25 10/11/25 07:18
Vital Signs
Temp Pulse Resp BP Pulse Ox
98.7 F 60 20 99/64 96
10/11/25 07:18 10/11/25 07:45 10/11/25 07:18 10/11/25 07:25 10/11/25 07:18
Intake & Output
10/09/25 10/10/25 10/11/25 10/12/25
06:59 06:59 06:59 06:59
Intake Total 240 / 240
Balance 240 / 240
Physical Exam
Physical Exam
GEN: NAD, AAO x 3
HEENT: EOMI
LUNGS: RA. CTA B/L, no wheeze
CV: SR on telemetry. Reg, S1/S2, 1/6 syst LSB
ABD: ND
EXT: No edema B/L LE
NEURO: Gross non-focal
SKIN: No rash
--- NOTE | 2025-10-11 10:40 | CM ---
Reviewed chart. Met with Mr. Brown to review discharge plans. He state prior to admission he resides with his spouse in a two story home. He states he has a first floor set-up. He states prior to admission he was ambulating with a single point
cane. He states he has a single point cane and a walker at home. He states he has has [facility] in the past. He would be agreeable to [facility] if indicated. He states he has a prescription plan and uses [facility]. He states
[facility] manages his INR's. Will need to see his current functional level to see if he will have any skilled care needs. Medical work-up in progress. The discharge plan is to return home with hie spouse and [facility] if indicated
when medically stable.
[2025-10-11 12:04] LABS: Troponin I 51.400 ng/ml
--- NOTE | 2025-10-11 13:17 | PTCARENOTE ---
pt received at change of shift from previous RN. Pt assisted OOB to chair with 1 assist and rolling walker. Pt very forgetful and confused to time- saying it is definitely saturday not saturday. otherwise oriented to person and place. able to recall
events that led him to the hospital. bed and chair alarm in place. NSR on telemetry with pacs. weakly palpable pulses. no edema. pt on room air, lung sounds diminished. active bowel sounds. ambulated to bathroom and had bowel movement, unable to
void. bladder scanned- 386 ml. radial site CDI, pt reminded of restrictions for right arm. pt updated on plan of care. see worklist for full nursing assessment and interventions.
--- NOTE | 2025-10-11 13:21 | PTCARENOTE ---
pt bladder scanned for 486 ml. pt encouraged to try to void, ambulated to bathroom, pt was able to void moderate amount of unmeasured андрей urine in toilet. bladder scanned post void- 71 ml. pt assisted back to chair with rolling walker.
--- NOTE | 2025-10-11 15:09 | W.CON.NEPH ---
Consultation
-
Date/Time Consultation Requested: 10/11/2025 11:00 AM
Date/Time Consultation Performed: 10/11/2025 3:00 PM
Requesting Provider: Dr. Rubalcava
Performing Provider: Dr. Wolf
Reason for Consultation: JAMES
Medical History
-
Chief Complaint: JAMES
History of Present Illness:
Patient is a 85-year-old male with past medical history significant for paroxysmal atrial fibrillation on chronic OAT with coumadin, essential hypertension, hyperlipidemia on statin, anxiety/bipolar disorder, GERD and anemia who presented to [facility] ED
for evaluation of shortness of breath and diaphoresis. Patient along side of spouse and daughter assisted with HPI. Patient reports walking this morning with walker when he fell. He does not recall becoming dizzy, short of breath or having
palpitations prior to fall. He also notes he does not feel like he tripped when he fell. Family assisted him up and patient was able to eat his breakfast without incident. A few hours later patient had an episode of emesis associated with shortness
of breath, dry cough and diaphoresis. Patients daughter also noted that patient appeared very pale compared to his baseline. He stated he did not notice chest pain until he was in ambulance on his way to hospital. Denies any fever, chills,
constipation, diarrhea or urinary symptoms. He was noted to have an acute inferior STEMI on presentation with associated bradycardia and cardiogenic shock with hemodynamic instability. his troponin had escalated to 73 and his creatinine on
presentation was consistent with acute kidney injury of 1.9 off his previous baseline of 0.9 in August 2023. He went for emergent left heart cath on 10/10/2025. He underwent PCI of the LAD. Nephrology was consulted for his acute kidney injury
Past Medical History
paroxysmal atrial fibrillation on Coumadin
essential hypertension
hyperlipidemia
anxiety/bipolar disorder
GERD
anemia
glaucoma
Social History
Tobacco: Former Smoker (Quit 20 years ago)
Alcohol: Occasional
Drug: None
Employment: Retired
Family History
No CKD
Allergies / Home Medications
Allergy/AdvReac Type Severity Reaction Status Date / Time
No Known Allergies Allergy Verified 08/20/23 12:50
�Medication �Instructions �Recorded �Confirmed �Type
atorvastatin 20 mg tablet 20 mg PO QPM High Cholesterol 08/20/23 10/10/25 History
cholecalciferol (vitamin D3) 125 125 mcg PO DAILY Supplement 08/20/23 10/10/25 History
mcg (5,000 unit) capsule
dorzolamide 22.3 mg-timolol 6.8 1 drp RIGHT EYE HS Eye Condition 08/20/23 10/10/25 History
mg/mL eye drops
lamotrigine 100 mg tablet 100 mg PO BID Neurological 08/20/23 10/10/25 History
Condition
latanoprost 0.005 % eye drops 1 drp BOTH EYES HS Eye Condition 08/20/23 10/10/25 History
warfarin 5 mg tablet 2.5 mg PO DAILY Blood Clot 08/20/23 10/10/25 History
Prevention/Tx
alfuzosin 10 mg tablet,extended 10 mg PO HS 10/10/25 10/10/25 History
release 24 hr
clonazepam 0.5 mg tablet 0.5 mg PO BID 10/10/25 10/10/25 History
pantoprazole 40 mg tablet,delayed 40 mg PO DAILY 10/10/25 10/10/25 History
release (Protonix)
sodium chloride 1 gram tablet 2,000 mg PO BID 10/10/25 10/10/25 History
Review of Systems
-
History Source: Patient
All other systems: Negative unless noted
: Other (Urinary retention)
Physical Exam
Vital Signs
Vital Signs
Temp Pulse Resp BP Pulse Ox
98.1 F 66 17 111/70 93
10/11/25 14:54 10/11/25 14:54 10/11/25 14:54 10/11/25 13:29 10/11/25 14:54
Lab Results
10/11/25 04:53
10/11/25 04:53
WBC 19.4 10^3/uL (4.8-10.8) H 10/11/25 04:53
RBC 3.49 10^6/uL (4.70-6.10) L 10/11/25 04:53
Hgb 10.0 g/dL (13.0-18.0) L 10/11/25 04:53
Hct 29.2 % (39.0-52.0) L 10/11/25 04:53
Plt Count 227 10^3/uL (130-400) 10/11/25 04:53
Sodium 134 mmol/L (135-145) L 10/11/25 04:53
Potassium 5.1 mmol/L (3.5-5.1) 10/11/25 04:53
Chloride 106 mmol/L (98-107) 10/11/25 04:53
Carbon Dioxide 22 mmol/L (22-30) 10/11/25 04:53
BUN 46 mg/dl (9-20) H 10/11/25 04:53
Creatinine 1.9 mg/dL (0.7-1.3) H 10/11/25 04:53
eGFR 33.93 10/11/25 04:53
Glucose 106 mg/dl (70-99) H 10/11/25 04:53
Calcium 8.7 mg/dl (8.4-10.2) 10/11/25 04:53
Albumin 4.0 g/dl (3.5-5.0) 10/10/25 11:06
Physical Exam
General: AOx3, Nontoxic , NAD
HEENT: PERRL, EOMI, Anicteric, Conjunctivae Clear, Ear/Nose Intact, Hearing Normal, Oropharynx Clear/Moist, Dentition Intact, Facial Symmetry, Neck Supple, Neck: Trachea Midline, No JVD and No Thyromegaly, no Bruits
Respiratory: Crackles at left base with normal lung excursion
Cardiac: S1/S2 and Regular Rate/Rhythm
Breast: Deferred by me
Abdomen: Soft, Nontender, Nondistended, Normal Bowel Sounds and No Hepatosplenomegaly
Rectal: Deferred by Provider
Genito-urinary: No Costovertebral Tenderness
Extremities: No Clubbing, No Cyanosis and No Edema
Skin: No Rash or open lesions
Neuro: Nonfocal/Grossly Intact, CN II-XII (Intact) and Strength (Musculoskeletal exam 5 out of 5 both upper and lower extremities)
Hematologic/Lymphatic: No Cervical Lymphadenopathy, No Submandibular Lymphadenopathy and No Supraclavicular Lymphadenopathy
Psych: Mood/affectt flat , Insight/judgement good and Appropriate
Vascular: plus 1 pedal and radial pulses
Data Reviewed
-
Medical Tests (Nuc Med, Echo etc): Other (Echo report reviewed: From 10/11/2025: EF 46%, mild apical inferior wall hypokinesis/EKG: Atrial fibs with slow ventricular response of 45 bpm incomplete right bundle branch block inferior infarct)
Labs: Labs Reviewed by me (BMP CBC urinalysis)
Old Records: Reviewed (Reviewed old medical record and electronic medical record from 08/26/2023 creatinine 0.9)
Assessment/Plan
-
Impression:
Inferior wall STEMI with subsequent cardiogenic shock and bradycardia (troponin peak 73)
Status post PCI and left heart catheterization on 10/10/2025
Acute kidney injury (baseline 0.9 in 09/02_
History of paroxysmal atrial fibrillation
History of hypertension
Anxiety and bipolar disease
Anemia
GERD
Gait dysfunction with history of falls
Plan:
JAMES:
- UA bland
- JAMES is likely prerenal he precipitated in setting of cardiogenic shock on presentation with STEMI
- Maintain MAP at 65 or greater post cath, blood pressure currently well-controlled with MAP greater than 80
- Patient will be at higher risk for contrast nephropathy over next 48 hours given cardiac cath exposure in the setting of hypotension and acute renal failure on presentation
- Aggressively monitor for urinary retention and if in doubt Place Dutta catheter given urinary retention history, most recent postvoid bladder scan residual however was less than 100 cc
- Follow BMP
Hyponatremia hx:
-Maintain sodium tablets and fluid restriction
- Serum sodium stable at 134
[2025-10-11] MEDS: COUMADIN 2.5 MG PO (17:38)
[2025-10-11] MEDS: LIPITOR 40 MG PO (17:38)
[2025-10-11] MEDS: XALATAN OPHTHALMIC SOLUTION 1 DROP BOTH EYES (22:01)
[2025-10-11] MEDS: FLOMAX 0.4 MG PO (22:01)
[2025-10-11] MEDS: TRUSOPT 2% OPHTHALMIC SOLUTION 1 DROP RIGHT EYE (22:01)
[2025-10-11] MEDS: TIMOPTIC 0.5% OPHTHALMIC SOLUTION 1 DROP RIGHT EYE (22:01)
[2025-10-12 04:11] VITALS: BP 111/66
[2025-10-12 04:50] LABS: Hematocrit 25.8 % (39.0-52.0); Hemoglobin 8.8 g/dL (13.0-18.0); Mean Corp Hgb Conc. 34.1 g/dL (33.0-37.0); Mean Corpuscular Volume 84.0 fL (80.0-94.0); Nucleated Red Blood Cells % 0 % (-); Platelet Count 193 10^3/uL (130-400); Red Cell Dist. Width 15.8 % (11.5-14.5)
[2025-10-12 05:10] LABS: Blood Urea Nitrogen 47 mg/dl (9-20); Calcium 8.5 mg/dl (8.4-10.2); Carbon Dioxide 21 mmol/L (22-30); Chloride 108 mmol/L (98-107); Estimated Creatinine Clearance 38 ml/min; Glucose 96 mg/dl (70-99); Potassium 3.9 mmol/L (3.5-5.1); Sodium 133 mmol/L (135-145); eGFR 53.50
[2025-10-12 06:05] LABS: INR 2.18; PT 24.5 Sec (11.4-14.6)
[2025-10-12 07:25] VITALS: BP 115/75
--- NOTE | 2025-10-12 07:26 | PTCARENOTE ---
Assumed care on pt at 1900, aaox3, able to make needs known, voicing no c/o cp or SOB. SR/SB on tele, HR 60's. Voiding in the bathroom with no issues, small amount retention post void, bladder scan this morning for 144 cc. Morning labs with hgb drop
from 10.0 to 8.8. 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 No signs of active bleed, urine clear yellow overnight. Updated pt on POC, call rudd within reach.
[2025-10-12] MEDS: PROTONIX 40 MG PO (07:59)
[2025-10-12] MEDS: VITAMIN D3 (cholecalciferol) 125 MCG PO (07:59)
[2025-10-12] MEDS: PLAVIX 75 MG PO (07:59)
[2025-10-12] MEDS: SODIUM CHLORIDE 2 GRAM PO (07:59)
[2025-10-12] MEDS: LOW STRENGTH ASPIRIN 81 MG PO (07:59)
[2025-10-12] MEDS: LAMICTAL 100 MG PO (07:59)
[2025-10-12 09:48] LABS: Hematocrit 28.5 % (39.0-52.0); Hemoglobin 9.4 g/dL (13.0-18.0); Mean Corp Hgb Conc. 33.0 g/dL (33.0-37.0); Mean Corpuscular Volume 84.6 fL (80.0-94.0); Platelet Count 220 10^3/uL (130-400); Red Cell Dist. Width 15.7 % (11.5-14.5)
[2025-10-12 10:17] VITALS: BP 123/68
[2025-10-12 10:37] VITALS: BP 123/68; PULSE 67; PULSE 70; O2SAT 99
[2025-10-12 11:17] LABS: Lipoprotein a (Lp a) 28 mg/dL (<=29)
[2025-10-12 11:43] VITALS: BP 112/67
--- NOTE | 2025-10-12 11:52 | W.PN.CARDCBS ---
Addendum entered and electronically signed by Aguilar Carrasco MD 10/12/25 13:54:
I saw and examined the patient.
The TITLE 1 TUTOR or PA's note was reviewed and I agree with the note.
Comment: General: Well developed, well nourished in NAD.
Neck: Supple, no JVD, HJR, carotids +2 B/L, no bruits bilaterally.
Heart: Non displaced PMI, RRR, no murmurs, No S3, S4, no rubs.
Lungs: Clear to auscultation bilaterally, no wheeze, rhonchi, rubs bilaterally,
normal expiratory phase.
Extremities: No clubbing, cyanosis or edema bilaterally.
Neuro: Grossly nonfocal, awake, alert and oriented x3.
Stable cardiology status for discharge. Follow-up arranged. Discussed with primary service
Original Note:
Today's Communication / Plan
-
Discharge to home today with outside hospital cardiology follow-up arranged by me
Discharge medication list reconciled and medications E scribed by me
Impression / Plan
-
PCP: Dr. Justin Pollock
Cardiology: Dr. Julius Robin
Impression:
Admitted with prehospital STEMI alert 10/10/2025
[facility] Label Remover on divert and so patient brought to [facility]
Acute inferior STEMI, troponin 73.9 and trending 10/11/2025
CAD
s/p overlapping 3.5 mm and 3.5 mm [place] MARIAH to the RCA 10/10/2025
TOOL CLERK of the mid LAD with left to left collaterals from LAD septals and likely faint epicardial collaterals as well 10/10/2025
Sinus bradycardia
given atropine by EMS 10/10/25
Hyperlipidemia
Paroxysmal atrial fibrillation
Chronic warfarin OAC managed by [facility] cardiology
HTN
Bipolar disorder
Anemia
JAMES
Hyperglycemia and prediabetes
Echo 03/13/23: EF 60-65%, mod basal septal LVH, mild-mod MAC, mild MR, mild-mod TR, mild /AI p/m 25.8/14.6mmHg
Echo 10/11/2025: EF 46%, mid apical inferior wall hypokinesis, mid and apical anterior septum, apical anterior segment and apex are hypokinetic, mild with mild aortic regurgitation, peak/mean 18/12 mmHg, mild MR, mild TR with PAP 40 mmHg
Plan:
-Patient came to [facility] ER as an acute inferior STEMI because [facility] Label Remover was on divert 10/10/2025. On cardiac cath patient found to have RCA lesion that was stented along with a TOOL CLERK of the LAD that did not receive intervention.
-Patient reports symptomatic improvement following RCA PCI 10/10/2025. No recurrence of chest pain or lightheadedness that he had on admission. Troponin peaked at 73.9.
-EF was 60 to 65% by echo 03/13/2023 and on repeat echo on 10/11/2025 the EF was down a bit at 46% with WMA as outlined above.
-Cardiac rehab as ordered
-LDL 46 and outpatient dose of atorvastatin increased to 40 mg daily in the setting of ACS
-Patient is chronically on warfarin, but was loaded with Brilinta prior to cardiac cath 10/10/2025. Following loading dose Brilinta the patient was switched to Plavix with a loading dose on the morning of 10/11/2025 and then daily dosing thereafter
starting 10/12/2025.
-Telemetry reviewed by me 10/12/25 and ongoing sinus bradycardia, no additional ventricular arrhythmia see.
-Patient was not started on beta-essence due to bradycardia requiring atropine during EMS transport 10/10/2025. Beta-essence was not added prior to discharge and patient can follow-up with his primary helicopter officer to see if this can be added as an
outpatient.
-VS reviewed by me 10/12/2025 and BP is largely hypotensive to normotensive. Patient was not taking BP meds prior to admission.
-Patient was not started on JORJE/ARB due to intermittent hypotension
-Patient has known paroxysmal A-fib, but looks like he has been in SR since admission. Patient was not taking any AV kevyn blockers as an outpatient.
-Patient is on chronic warfarin therapy managed by [facility] cardiology, they perform fingersticks in their office every 4 weeks so long as patient is therapeutic, INR goal is 2-3. Patient recalls being on Eliquis at one point, but had to stop due
to cost.
-INR 2.18 on my review of labs from 10/12/2025. Outpatient dose of warfarin 2.5 mg daily will be continued upon discharge and patient will follow-up with his Coumadin clinic for management.
-Cre improved and down to 1.3 on my review of labs 10/12/2025. Nephrology consultation in progress note reviewed by me 10/12/2025, JAMES felt to be prerenal in the setting of cardiogenic shock on admission.
-Patient noted to have hyperglycemia and HgbA1c is 5.9% consistent with prediabetes.
-Patient is stable for discharge to home on 10/12/2025. I updated the patient's in the room on 10/11/2025 and then again by phone on 10/12/2025.
-I called the patient's primary helicopter officer in 10/12/2025 and made him an outpatient appointment with their office on 10/20/2025 at 11:20 AM. I updated the patient's with the appointment timing as well.
HPI: 85M with prior MS and positive stress test managed conservatively, prior GIB, Afib on Warfarin, presenting with dizziness and a fall, emesis, and found to have inferior JASON. Hypotensive on arrival. Presentation is concerning for inferior STEMI
with cardiogenic shock. Will take to emergent coronary angiography and possible intervention. Risks/benefits discussed with patient and family. Loaded with ASA/ticag and heparin bolus. Further recommendations to follow pending cath results.
Progress Note - [place]
Subjective
Date of Service: October 12, 2025
He feels well, denies chest pain
Objective
Labs:
10/12/25 09:27
10/12/25 04:31
Labs
Hgb 9.4 g/dL (13.0-18.0) L 10/12/25 09:27
Hct 28.5 % (39.0-52.0) L 10/12/25 09:27
Plt Count 220 10^3/uL (130-400) 10/12/25 09:27
PT 24.5 Sec (11.4-14.6) H 10/12/25 04:31
INR 2.18 10/12/25 04:31
Sodium 133 mmol/L (135-145) L 10/12/25 04:31
Potassium 3.9 mmol/L (3.5-5.1) 10/12/25 04:31
BUN 47 mg/dl (9-20) H 10/12/25 04:31
Creatinine 1.3 mg/dL (0.7-1.3) 10/12/25 04:31
Glucose 96 mg/dl (70-99) 10/12/25 04:31
Troponins
10/10/25 10/10/25 10/10/25
11:06 14:37 19:42
Troponin I 17.000 H* 26.900 H* D 62.400 H* D
10/10/25 10/11/25 10/11/25
22:37 01:15 04:53
Troponin I 66.700 H* Cancelled 73.900 H*
10/11/25
11:24
Troponin I 51.400 H* D
Vital Signs and I&O:
Vital Signs
Temp Pulse Resp BP Pulse Ox
97.8 F 79 18 115/75 100
10/12/25 11:45 10/12/25 09:30 10/12/25 11:45 10/12/25 07:25 10/12/25 11:45
Vital Signs
Temp Pulse Resp BP Pulse Ox
97.8 F 79 18 115/75 100
10/12/25 11:45 10/12/25 09:30 10/12/25 11:45 10/12/25 07:25 10/12/25 11:45
Intake & Output
10/10/25 10/11/25 10/12/25 10/13/25
06:59 06:59 06:59 06:59
Intake Total 240 / 240 1690 / 1690
Balance 240 / 240 1690 / 1690
Physical Exam
Physical Exam
GEN: NAD, AAO x 3
HEENT: EOMI
LUNGS: RA. CTA B/L, no wheeze
CV: SR on telemetry. Reg, S1/S2, 1/ syst LSB
ABD: ND
EXT: No edema B/L LE
NEURO: Gross non-focal
SKIN: No rash
--- NOTE | 2025-10-12 11:56 | W.PN.NEPH.PH ---
Today's Communication / Plan
-
d/c plan
Assessment/Plan
-
Impression:
Inferior wall STEMI with subsequent cardiogenic shock and bradycardia (troponin peak 73)
Status post PCI and left heart catheterization on 10/10/2025
Acute kidney injury (baseline 0.9 in 09/02_
History of paroxysmal atrial fibrillation
History of hypertension
Anxiety and bipolar disease
Anemia
GERD
Gait dysfunction with history of falls
Plan:
JAMES:
- UA bland
- JAMES is likely prerenal he precipitated in setting of cardiogenic shock on presentation with STEMI
cr is better at 1.3
stable hyponatremia on salt tab and FR
BP have improved
ok for d/c per renal
BMP in 1week with PCP
-
-
Date of Service: October 12, 2025
CC / HPI / ROS
-
Chief Complaint:
hyponatremia, JAMES
History of Present Illness:
sodium stable at 133
BP are better
cr down to 1.3
hb stable 9.4
Review of Systems:
no fevers
no cp or sob
no dizziness
Labs
-
Labs:
WBC 11.8 10^3/uL (4.8-10.8) H 10/12/25 09:27
RBC 3.37 10^6/uL (4.70-6.10) L 10/12/25 09:27
Hgb 9.4 g/dL (13.0-18.0) L 10/12/25 09:27
Hct 28.5 % (39.0-52.0) L 10/12/25 09:27
Plt Count 220 10^3/uL (130-400) 10/12/25 09:27
Sodium 133 mmol/L (135-145) L 10/12/25 04:31
Potassium 3.9 mmol/L (3.5-5.1) 10/12/25 04:31
Chloride 108 mmol/L (98-107) H 10/12/25 04:31
Carbon Dioxide 21 mmol/L (22-30) L 10/12/25 04:31
BUN 47 mg/dl (9-20) H 10/12/25 04:31
Creatinine 1.3 mg/dL (0.7-1.3) 10/12/25 04:31
eGFR 53.50 10/12/25 04:31
Glucose 96 mg/dl (70-99) 10/12/25 04:31
Calcium 8.5 mg/dl (8.4-10.2) 10/12/25 04:31
Albumin 4.0 g/dl (3.5-5.0) 10/10/25 11:06
Physical Exam
-
Vital Signs:
Vital Signs
Temp Pulse Resp BP Pulse Ox
97.8 F 79 18 115/75 100
10/12/25 11:45 10/12/25 09:30 10/12/25 11:45 10/12/25 07:25 10/12/25 11:45
Cardiovascular:: Regular rate and rhythm
Respiratory:: Bilateral: CTA
Lung Excursion:: Normal
Abdomen:: Nontender and Soft
Extremity Edema:: None: Bilateral:
Dutta Catheter: No
--- NOTE | 2025-10-12 12:55 | PTCARENOTE ---
Assumed care of the pt @ 0700. Pt is AAOx3 SR on the monitor VSS denies cp. Pt is 1 person assist with walker to bathroom and in hallway. was updated by this RN this morning. Plan for discharge to home this afternoon.
--- NOTE | 2025-10-12 13:20 | CM ---
Reviewed chart. Met with Mr. Brown to review discharge plans. Reviewed recommendation of Home Health Care/ [facility]NA Services. He is agreeable to VNA Services. Telephone call to [facility] who states they cannot take the referral at
this time. Telephone call to [facility] to make the referral. Sent referral to [facility]. Updated Mr. Brown to review change of VNA agency. Prior to admission he resides with his spouse in a two story home. He has a first floor
set-up. Prior to admission he was ambulating with a single point cane. He has a single point cane and a walker at home. has has [facility] in the past. He would be agreeable to [facility] if indicated. He has a prescription plan and uses
[facility]. [facility] manages his INR's. Will need to see his current functional level to see if he will have any skilled care needs. Medical work-up in progress. The discharge plan is to return home with hie spouse and
[facility] when medically stable.
--- NOTE | 2025-10-12 14:16 | W.PN.HOSP.TC ---
Today's Communication/Plan
-
dc to home/VN
Assessment / Plan
Assessment / Plan
Assessment:
STEMI:
Status post emergent cardiac cath on 10/10 (transfer from [facility] due to being on divert)
Cardiology following
DC on ASA/Plavix/Coumadin x 1 week, then Plavix/Coumadin
DC on Statin
Not on beta-essence due to bradycardia
Troponin peaked to 73.9 now down to 51
Echocardiogram: EF 46%, mid apical inferior wall hypokinesis, mid and apical anterior septum, apical anterior segment and apex are hypokinetic, mild with mild aortic regurgitation, peak/mean 18/12 mmHg, mild MR, mild TR with PAP 40 mmHg
OP Cards f/u
Sinus bradycardia:
- Given atropine by EMS
JAMES
Creatinine 1.3 today
Multiple factors could have contributed such as hemodynamics (cardiogenic shock from STEMI), A-fib/bradycardia, contrast, urinary retention/postobstructive, ATN, other.
Nephrology signed off
BMP in 1 week
Urinary retention:
Continue Flomax
Straight cath as needed but if continues to retain we will place a Dutta cath so continue to monitor
Anemia:
Monitor hemoglobin closely
Hyponatremia:
Monitor trend in a.m.
Leukocytosis:
Likely reactive and trending down
Monitor trend
Paroxysmal atrial fibrillation:
On anticoagulation with warfarin 2.5mg HS, INR 2.18 today. F/u OP Cardiology/Coumadin Clinic
Hypertension:
Continue with hypertensive
Hyperlipidemia:
Continue statin
Bipolar with anxiety:
Continue Lamictal
Continue benzodiazepine
History of GI bleed in the past:
No signs of GI bleeding at the moment
DVT prophylaxis:Warfarin
CODE STATUS: Full code
More than 30 minutes spent in discharge including
Final examination of the patient
Summarizing hospital stay
Instructions for continuing care to all relevant caregivers
Preparation of discharge records, prescriptions, and referral forms
Total time spent (in minutes): 41
Anticipated Discharge: Today
Subjective/Interval History
-
Date of Service: October 12, 2025
Cr 1.3
resting comfortably, no chest pains
Objective Data
-
Labs:
Laboratory Results
10/12/25 10/12/25
04:31 09:27
WBC 11.3 H 11.8 H
Hgb 8.8 L 9.4 L
Hct 25.8 L 28.5 L
Plt Count 193 220
PT 24.5 H
INR 2.18
Sodium 133 L
Potassium 3.9
Chloride 108 H
Carbon Dioxide 21 L
BUN 47 H
Creatinine 1.3
Glucose 96
Calcium 8.5
Vital Signs:
Vital Signs
Temp Pulse Resp BP Pulse Ox
97.8 F 79 18 115/75 100
10/12/25 11:45 10/12/25 09:30 10/12/25 11:45 10/12/25 07:25 10/12/25 11:45
I&O
10/11/25 10/12/25 10/13/25
06:59 06:59 06:59
Intake Total 240 / 240 1690 / 1690
Balance 240 / 240 1690 / 1690
Physical Exam
-
General: No Apparent Distress
HEENT: Normocephalic and Atraumatic
Respiratory: Negative Wheezes
Cardiac: Regular Rhythm and S1/S2
GI: Soft and Nontender
Genito-urinary: No Costovertebral Tender
Neuro: AO x 3
Psych: Calm
Data Reviewed
-
Total Time Spent with Patient (in minutes): 42
Labs: Labs Reviewed by me
--- NOTE | 2025-10-12 14:23 | W.DCSUMMARY ---
Discharge Summary
Discharge Data
Date of Admission: 10/10/25
Date of Discharge: 10/12/25
-
Pending Results: No
Hospital Course
85 y/o M with PMH of medical history of esophageal ulcer status post clipping, chronic anemia, CAD/prior NSTEMI, paroxysmal atrial fibrillation on Coumadin, sick sinus syndrome, left subclavian stenosis, hypertension, chronic hyponatremia,
anxiety/bipolar, hyperlipidemia presented to ER on 10/10 with dizziness/SOB. Patient has bradycardia in EMS requiring Atropine. Initial EKG in ER showed STEMI. Troponin was 17 and peaked at 73. Patient was loaded with Ticagrelor, ASA and heparin.
Patient was urgently taken to quality lab technician and was found to have cardiogenic shock and IVUS-optimized PCI with DESx2 to LAD.
Post-procedure, patient was admitted to [facility] Cardiac floor. He was placed on ASA/Plavix and Coumadin for 1 week then will consolidate to Coumadin + Plavix. Due to shock and bradycardia, patient could not tolerated BB/JORJE/ARB. His Echo showed EF 46%,
mid apical inferior wall hypokinesis, mid and apical anterior septum, apical anterior segment and apex are hypokinetic, mild with mild aortic regurgitation, peak/mean 18/12 mmHg, mild MR, mild TR with PAP 40 mmHg.
He was discharged home with VN and Cardiac rehab referral. He will follow up with [facility] in 1 week and [facility]
Discharge Plan
-
Patient Disposition: Home with Home Care
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
collateral filling by cardiac catheterization 10/10/2025, paroxysmal atrial fibrillation, chronic warfarin anticoagulation managed by primary transport medic
Condition: Good
Diet: Low Fat and Low Sodium
Activity: Other activity
Driving Restrictions: As prior to admission
Bathing Restrictions: OK to Shower
Blood Work: - Your INR was 2.18 on 10/12/2025. Continue taking your usual dose of warfarin 2.5 mg daily. Check a fingerstick INR with your transport medic office in the next week to maintain an INR goal of 2-3.
Also repeat BMP in 1 week - script was given.
Other Services: VN, PT and Cardiac Rehab
Activity Restrictions/Additional Instructions:
Patient to do physical therapy prior to cardiac rehab. Once PT is complete, patient may call to schedule an appointment [phone] or at [facility] [phone].
Referrals:
[facility] [Outside]
Justin Pollock MD [Family Provider, Internal Medicine]
Zack Robin MD [Active, Cardiology] - 10/20/25 11:20 am
Referral Note: You have an appointment to see Dr. Robin physician assistant professor of spanish, Tash, at his office on 10/20/2025 at 11:20 AM. Please call their office if you need to reschedule.
Additional Discharge Medication Instructions: - Take aspirin 81 mg daily until 10/17/2025 and after that stop taking aspirin.
- Take your usual dose of warfarin 2.5 mg daily. Your INR was 2.18 on 10/12/2025.
- Start taking Plavix (clopidogrel) 75 mg daily, do not miss any doses of Plavix and do not stop taking Plavix unless directed by your transport medic.
- Increase your dose of Lipitor (atorvastatin) to 40 mg (two 20 mg tablets or one 40 mg tablet) once daily
Prescriptions:
New
atorvastatin 40 mg Tablet
40 mg PO QPM Qty: 30 11RF
clopidogrel 75 mg Tablet
75 mg PO DAILY Qty: 30 11RF
aspirin 81 mg Tablet,Chewable
81 mg PO DAILY Qty: 5 0RF
Continued
latanoprost 0.005 % Drops
1 drp BOTH EYES HS
warfarin 5 mg Tablet
2.5 mg PO DAILY
dorzolamide-timolol 22.3-6.8 mg/mL Drops
1 drp RIGHT EYE HS
cholecalciferol (vitamin D3) 125 mcg (5,000 unit) Capsule
125 mcg PO DAILY
lamotrigine 100 mg Tablet
100 mg PO BID
clonazepam 0.5 mg Tablet
0.5 mg PO BID
sodium chloride 1 gram Tablet
2,000 mg PO BID
alfuzosin 10 mg Tablet Extended Release 24 Hr
10 mg PO HS
pantoprazole [Protonix] 40 mg tablet,delayed release (DR/EC)
40 mg PO DAILY
Discontinued
atorvastatin 20 mg Tablet
20 mg PO QPM
Discharge Orders:
Discharge Patient (As Directed); Ordered 10/12/25
Ordered By: Israel Romero
Care Plan Goals
Care Plan Goals:
Problem: Readiness for enhanced knowledge related to diagnosis and treatment plan
Goal: Understand your diagnosis and treatment plan needs, including medications if applicable.
Instructions: Know your diagnosis, underlying causes and treatment plan options, including medications if applicable. Consult with your health care team to learn about your diagnosis and treatment plan, including medications if applicable.
Discharge Date and Time
Print Language: ARGENTINE
[2025-10-12 14:43] VITALS: BP 101/67
--- NOTE | 2025-10-12 16:34 | PTCARENOTE ---
Pt was discharged to home via wheelchair with and daughter. Instructions were given to family PIV and steward/stewardess room removed prior to dc. Prescription for BMP in 1 week given to . All belongings from room with pt.
== END 2025-10-12 16:47 | disposition home health service (06) | DRG 321 ==
LOC: IVU 13:17
PROVIDERS: Hospitalist; Nurse Practitioner Family; Physician Assistant Medical; ADMITTING PHYSICIAN Hospitalist; ATTENDING PHYSICIAN Internal Medicine; EMERGENCY PHYSICIAN Student in an Organized Health Care Education/Training Program; FAMILY PHYSICIAN Internal Medicine; OTHER PHYSICIAN Specialist; OTHER PHYSICIAN Student in an Organized Health Care Education/Training Program
PROC: B240ZZ3 Ultrasonography of Single Coronary Artery, Intravascular (ICD-10-PCS; 2025-10-10)
PROC: 027034Z Dilation of Coronary Artery, One Artery with Drug-eluting Intraluminal Device, Percutaneous Approach (ICD-10-PCS; 2025-10-10)
PROC: B2111ZZ Fluoroscopy of Multiple Coronary Arteries using Low Osmolar Contrast (ICD-10-PCS; 2025-10-10)
PROC: 4A023N7 Measurement of Cardiac Sampling and Pressure, Left Heart, Percutaneous Approach (ICD-10-PCS; 2025-10-10)
DX: I21.19 ST elevation (STEMI) myocardial infarction involving other coronary artery of inferior wall (principal); R57.0 Cardiogenic shock; E87.1 Hypo-osmolality and hyponatremia; N17.9 Acute kidney failure, unspecified; I47.20 Ventricular tachycardia, unspecified; E78.00 Pure hypercholesterolemia, unspecified; I25.10 Atherosclerotic heart disease of native coronary artery without angina pectoris; I10 Essential (primary) hypertension; F41.9 Anxiety disorder, unspecified; F31.9 Bipolar disorder, unspecified; D64.9 Anemia, unspecified; I70.8 Atherosclerosis of other arteries; I35.0 Nonrheumatic aortic (valve) stenosis; I48.0 Paroxysmal atrial fibrillation; K21.9 Gastro-esophageal reflux disease without esophagitis; H40.9 Unspecified glaucoma; D72.829 Elevated white blood cell count, unspecified; R33.9 Retention of urine, unspecified; W19.XXXA Unspecified fall, initial encounter; Y93.9 Activity, unspecified; Y92.9 Unspecified place or not applicable; I25.2 Old myocardial infarction; Z96.651 Presence of right artificial knee joint; Z79.82 Long term (current) use of aspirin; Z79.01 Long term (current) use of anticoagulants; Z87.891 Personal history of nicotine dependence; Z79.899 Other long term (current) drug therapy; Z87.19 Personal history of other diseases of the digestive system; Z91.81 History of falling
CPT/HCPCS: 70450; 80048; 80053; 80061; 83036; 83695; 84484; 85025; 85027; 85347; 85610; 86850; 86900; 86901; 92978; 93005; 93306; 93458; 97163; 97166; 99152; 99153; 99291; C1725; C1753; C1769; C1874; C1894; C9606; Q9950; Q9967